=== PATIENT | male | born 1965 | race Caucasian/White ===

== ENCOUNTER → 2019-12-30 | Outpatient (CLI) | payer OTHER | LOC: HYPER 13:25 | PROVIDERS: ATTEND Emergency Medicine | DX: L97.812 Non-pressure chronic ulcer of other part of right lower leg with fat layer exposed (principal); L03.115 Cellulitis of right lower limb; R60.0 Localized edema; E66.01 Morbid (severe) obesity due to excess calories; F17.200 Nicotine dependence, unspecified, uncomplicated; Z68.43 Body mass index [BMI] 50.0-59.9, adult ==

== ENCOUNTER → 2020-01-06 | Outpatient (CLI) | payer OTHER | LOC: HYPER 14:03 | PROVIDERS: ATTEND Emergency Medicine | DX: L97.812 Non-pressure chronic ulcer of other part of right lower leg with fat layer exposed (principal); L03.115 Cellulitis of right lower limb; R60.0 Localized edema; E66.01 Morbid (severe) obesity due to excess calories; F17.290 Nicotine dependence, other tobacco product, uncomplicated; Z68.43 Body mass index [BMI] 50.0-59.9, adult ==

== ENCOUNTER → 2020-02-11 | Outpatient (CLI) | payer OTHER | LOC: HYPER 14:04 | PROVIDERS: ATTEND Emergency Medicine | DX: L97.312 Non-pressure chronic ulcer of right ankle with fat layer exposed (principal); L97.812 Non-pressure chronic ulcer of other part of right lower leg with fat layer exposed; L03.115 Cellulitis of right lower limb; R60.0 Localized edema; E66.01 Morbid (severe) obesity due to excess calories; F17.290 Nicotine dependence, other tobacco product, uncomplicated; Z68.43 Body mass index [BMI] 50.0-59.9, adult ==

== ENCOUNTER → 2020-02-25 | Outpatient (CLI) | payer OTHER | LOC: HYPER 08:42 | PROVIDERS: ATTEND Emergency Medicine | DX: L97.812 Non-pressure chronic ulcer of other part of right lower leg with fat layer exposed (principal); L03.115 Cellulitis of right lower limb; R60.0 Localized edema; I89.0 Lymphedema, not elsewhere classified; I87.8 Other specified disorders of veins; E66.01 Morbid (severe) obesity due to excess calories; F17.200 Nicotine dependence, unspecified, uncomplicated; Z68.43 Body mass index [BMI] 50.0-59.9, adult ==

== ENCOUNTER → 2020-04-06 | Outpatient (CLI) | payer OTHER | LOC: HYPER 15:03 | PROVIDERS: ATTEND Emergency Medicine | DX: L97.812 Non-pressure chronic ulcer of other part of right lower leg with fat layer exposed (principal); L03.115 Cellulitis of right lower limb; R60.0 Localized edema; I89.0 Lymphedema, not elsewhere classified; I87.8 Other specified disorders of veins; E66.01 Morbid (severe) obesity due to excess calories; F17.200 Nicotine dependence, unspecified, uncomplicated; Z68.43 Body mass index [BMI] 50.0-59.9, adult ==

== ENCOUNTER → 2020-04-13 | Outpatient (CLI) | payer OTHER | LOC: HYPER 13:56 | PROVIDERS: ATTEND Emergency Medicine | DX: L97.312 Non-pressure chronic ulcer of right ankle with fat layer exposed (principal); L03.115 Cellulitis of right lower limb; R60.0 Localized edema; I89.0 Lymphedema, not elsewhere classified; I87.8 Other specified disorders of veins; E66.01 Morbid (severe) obesity due to excess calories; F17.200 Nicotine dependence, unspecified, uncomplicated; Z68.43 Body mass index [BMI] 50.0-59.9, adult ==

== ENCOUNTER → 2020-04-27 | Outpatient (CLI) | payer OTHER | LOC: HYPER 13:42 | PROVIDERS: ATTEND Emergency Medicine | DX: L97.312 Non-pressure chronic ulcer of right ankle with fat layer exposed (principal); L03.115 Cellulitis of right lower limb; I89.0 Lymphedema, not elsewhere classified; R60.0 Localized edema; I87.8 Other specified disorders of veins; E66.01 Morbid (severe) obesity due to excess calories; F17.200 Nicotine dependence, unspecified, uncomplicated; Z68.43 Body mass index [BMI] 50.0-59.9, adult ==

== ENCOUNTER → 2020-05-11 | Outpatient (CLI) | payer OTHER | LOC: HYPER 10:39 | PROVIDERS: ATTEND Emergency Medicine | DX: L97.312 Non-pressure chronic ulcer of right ankle with fat layer exposed (principal); L03.115 Cellulitis of right lower limb; L84 Corns and callosities; I89.0 Lymphedema, not elsewhere classified; R60.0 Localized edema; I87.8 Other specified disorders of veins; E66.01 Morbid (severe) obesity due to excess calories; F17.200 Nicotine dependence, unspecified, uncomplicated; Z68.43 Body mass index [BMI] 50.0-59.9, adult ==

== ENCOUNTER → 2020-05-25 | Outpatient (CLI) | payer OTHER | LOC: HYPER 13:20 | PROVIDERS: ATTEND Emergency Medicine | DX: L97.312 Non-pressure chronic ulcer of right ankle with fat layer exposed (principal); L03.115 Cellulitis of right lower limb; L84 Corns and callosities; I89.0 Lymphedema, not elsewhere classified; R60.0 Localized edema; I87.8 Other specified disorders of veins; E66.01 Morbid (severe) obesity due to excess calories; F17.200 Nicotine dependence, unspecified, uncomplicated; Z68.43 Body mass index [BMI] 50.0-59.9, adult ==

== ENCOUNTER → 2020-06-08 | Outpatient (CLI) | payer OTHER | LOC: HYPER 13:59 | PROVIDERS: ATTEND Emergency Medicine | DX: L97.312 Non-pressure chronic ulcer of right ankle with fat layer exposed (principal); L03.115 Cellulitis of right lower limb; L84 Corns and callosities; I89.0 Lymphedema, not elsewhere classified; R60.0 Localized edema; I87.8 Other specified disorders of veins; E66.01 Morbid (severe) obesity due to excess calories; F17.200 Nicotine dependence, unspecified, uncomplicated; Z68.43 Body mass index [BMI] 50.0-59.9, adult ==

== ENCOUNTER → 2020-06-18 | Outpatient (CLI) | payer OTHER | LOC: HYPER 12:58 | PROVIDERS: ATTEND Emergency Medicine | DX: L97.312 Non-pressure chronic ulcer of right ankle with fat layer exposed (principal); L03.115 Cellulitis of right lower limb; L84 Corns and callosities; I89.0 Lymphedema, not elsewhere classified; R60.0 Localized edema; I87.8 Other specified disorders of veins; E66.01 Morbid (severe) obesity due to excess calories; F17.200 Nicotine dependence, unspecified, uncomplicated; Z68.43 Body mass index [BMI] 50.0-59.9, adult ==

== ENCOUNTER → 2020-07-06 | Outpatient (CLI) | payer OTHER | LOC: HYPER 12:20 | PROVIDERS: ATTEND Emergency Medicine | DX: L97.312 Non-pressure chronic ulcer of right ankle with fat layer exposed (principal); L03.115 Cellulitis of right lower limb; L84 Corns and callosities; I89.0 Lymphedema, not elsewhere classified; R60.0 Localized edema; I87.8 Other specified disorders of veins; E66.01 Morbid (severe) obesity due to excess calories; F17.200 Nicotine dependence, unspecified, uncomplicated; Z68.43 Body mass index [BMI] 50.0-59.9, adult ==

== ENCOUNTER → 2020-07-27 | Outpatient (CLI) | payer OTHER | LOC: HYPER 12:52 | PROVIDERS: ATTEND Emergency Medicine | DX: L97.312 Non-pressure chronic ulcer of right ankle with fat layer exposed (principal); L97.812 Non-pressure chronic ulcer of other part of right lower leg with fat layer exposed; L03.115 Cellulitis of right lower limb; I89.0 Lymphedema, not elsewhere classified; R60.0 Localized edema; F17.290 Nicotine dependence, other tobacco product, uncomplicated; E66.01 Morbid (severe) obesity due to excess calories; Z68.43 Body mass index [BMI] 50.0-59.9, adult; Z79.899 Other long term (current) drug therapy ==

== ENCOUNTER → 2020-08-17 | Outpatient (CLI) | payer OTHER | LOC: HYPER 07:47 | PROVIDERS: ATTEND Emergency Medicine | DX: L97.312 Non-pressure chronic ulcer of right ankle with fat layer exposed (principal); L03.115 Cellulitis of right lower limb; I89.0 Lymphedema, not elsewhere classified; R60.0 Localized edema; F17.290 Nicotine dependence, other tobacco product, uncomplicated; E66.01 Morbid (severe) obesity due to excess calories; Z68.43 Body mass index [BMI] 50.0-59.9, adult ==

== ENCOUNTER → 2020-09-07 | Outpatient (CLI) | payer OTHER | LOC: HYPER 08:06 | PROVIDERS: ATTEND Emergency Medicine | DX: L97.312 Non-pressure chronic ulcer of right ankle with fat layer exposed (principal); L97.812 Non-pressure chronic ulcer of other part of right lower leg with fat layer exposed; L03.115 Cellulitis of right lower limb; I89.0 Lymphedema, not elsewhere classified; R60.0 Localized edema; F17.290 Nicotine dependence, other tobacco product, uncomplicated; Z68.43 Body mass index [BMI] 50.0-59.9, adult; E66.01 Morbid (severe) obesity due to excess calories; Z79.899 Other long term (current) drug therapy ==

== ENCOUNTER → 2020-09-28 | Outpatient (CLI) | payer OTHER | LOC: HYPER 09:11 | PROVIDERS: ATTEND Emergency Medicine | DX: L97.312 Non-pressure chronic ulcer of right ankle with fat layer exposed (principal); L97.812 Non-pressure chronic ulcer of other part of right lower leg with fat layer exposed; I89.0 Lymphedema, not elsewhere classified; L03.115 Cellulitis of right lower limb; R60.0 Localized edema; E66.01 Morbid (severe) obesity due to excess calories; F17.290 Nicotine dependence, other tobacco product, uncomplicated; Z68.43 Body mass index [BMI] 50.0-59.9, adult; Z79.899 Other long term (current) drug therapy ==

== ENCOUNTER → 2020-10-26 | Outpatient (CLI) | payer OTHER | LOC: HYPER 09:23 | PROVIDERS: ATTEND Emergency Medicine Emergency Medical Services | DX: L97.312 Non-pressure chronic ulcer of right ankle with fat layer exposed (principal); L97.812 Non-pressure chronic ulcer of other part of right lower leg with fat layer exposed; I89.0 Lymphedema, not elsewhere classified; L03.115 Cellulitis of right lower limb; R60.0 Localized edema; E66.01 Morbid (severe) obesity due to excess calories; F17.290 Nicotine dependence, other tobacco product, uncomplicated; Z68.43 Body mass index [BMI] 50.0-59.9, adult ==

== ENCOUNTER → 2020-11-23 | Outpatient (CLI) | payer OTHER | LOC: HYPER 10:43 | PROVIDERS: ATTEND Emergency Medicine Emergency Medical Services | DX: L97.312 Non-pressure chronic ulcer of right ankle with fat layer exposed (principal); L97.812 Non-pressure chronic ulcer of other part of right lower leg with fat layer exposed; L03.115 Cellulitis of right lower limb; L84 Corns and callosities; I89.0 Lymphedema, not elsewhere classified; R60.0 Localized edema; E66.01 Morbid (severe) obesity due to excess calories; F17.290 Nicotine dependence, other tobacco product, uncomplicated; Z68.43 Body mass index [BMI] 50.0-59.9, adult ==

== ENCOUNTER → 2020-12-23 | Outpatient (CLI) | payer OTHER | LOC: HYPER 12-21 13:40 | PROVIDERS: ATTEND Emergency Medicine | DX: L97.312 Non-pressure chronic ulcer of right ankle with fat layer exposed (principal); L03.115 Cellulitis of right lower limb; L84 Corns and callosities; I89.0 Lymphedema, not elsewhere classified; R60.0 Localized edema; E66.01 Morbid (severe) obesity due to excess calories; F17.290 Nicotine dependence, other tobacco product, uncomplicated; Z68.43 Body mass index [BMI] 50.0-59.9, adult ==

== ENCOUNTER → 2021-01-25 | Outpatient (CLI) | payer OTHER | LOC: HYPER 11:46 | PROVIDERS: ATTEND Emergency Medicine | DX: L97.312 Non-pressure chronic ulcer of right ankle with fat layer exposed (principal); L03.115 Cellulitis of right lower limb; L84 Corns and callosities; I89.0 Lymphedema, not elsewhere classified; R60.0 Localized edema; E66.01 Morbid (severe) obesity due to excess calories; F17.290 Nicotine dependence, other tobacco product, uncomplicated; Z68.43 Body mass index [BMI] 50.0-59.9, adult ==

== ENCOUNTER → 2021-02-22 | Outpatient (CLI) | payer OTHER | LOC: HYPER 08:38 | PROVIDERS: ATTEND Emergency Medicine | DX: L97.312 Non-pressure chronic ulcer of right ankle with fat layer exposed (principal); L97.812 Non-pressure chronic ulcer of other part of right lower leg with fat layer exposed; I89.0 Lymphedema, not elsewhere classified; L03.115 Cellulitis of right lower limb; R60.0 Localized edema; E66.01 Morbid (severe) obesity due to excess calories; F17.290 Nicotine dependence, other tobacco product, uncomplicated; Z68.43 Body mass index [BMI] 50.0-59.9, adult; Z79.899 Other long term (current) drug therapy ==

== ENCOUNTER → 2021-04-05 | Outpatient (CLI) | payer OTHER | LOC: HYPER 08:47 | PROVIDERS: ATTEND Emergency Medicine | DX: L97.312 Non-pressure chronic ulcer of right ankle with fat layer exposed (principal); L97.812 Non-pressure chronic ulcer of other part of right lower leg with fat layer exposed; L84 Corns and callosities; I89.0 Lymphedema, not elsewhere classified; L03.115 Cellulitis of right lower limb; R60.0 Localized edema; E66.01 Morbid (severe) obesity due to excess calories; F17.290 Nicotine dependence, other tobacco product, uncomplicated; Z68.43 Body mass index [BMI] 50.0-59.9, adult ==